=== PATIENT | male | born 1960 | race Caucasian/White ===

== ENCOUNTER 2017-10-28 15:42 | Emergency (ER) | payer OTHER, SELFPAY ==
[~2017-10-28] VITALS: Ht 180.3 cm; Wt 83.6 kg
[2017-10-28] MEDS ORDERED: LIDOCAINE 1%-EPI 1:100K, 30ML ONE (16:15)
[2017-10-28] MEDS ORDERED: BUPROPION PO (16:16)
[2017-10-28] MEDS ORDERED: SERT100T5 PO (16:16)
[2017-10-28] MEDS ORDERED: DIPH,PERTUSS(ACELL),TET VAC/PF 0.5 ML IM-VACC ONE ×2 (16:20→16:30)
[2017-10-28] MEDS ORDERED: LIDOCAINE 1%-EPI 1:100K, 20ML SQ ONE (16:30)
[2017-10-28] MEDS ORDERED: LIDOCAINE-MPF 2%, 2ML ONE (16:35)
[2017-10-28] MEDS ORDERED: BACITRACIN ZINC OINT 500U/GM, 0.9 GM ONE (18:07)
[2017-10-28 18:36] VITALS: BP 128/78
== END 2017-10-28 18:37 | disposition home or self-care (01) ==
LOC: ED 18:15
DX: S61.421A Laceration with foreign body of right hand, initial encounter (principal); W01.10XA Fall on same level from slipping, tripping and stumbling with subsequent striking against unspecified object, initial encounter; Y93.79 Activity, other specified sports and athletics; Y99.8 Other external cause status; Y92.830 Public park as the place of occurrence of the external cause
CPT/HCPCS: 13132; 73130; 90471; 90715; 99285; J3490; 13133